=== PATIENT | male | born 1970 | race Caucasian/White ===

== ENCOUNTER 2018-11-25 05:04 | Observation (INO) | payer OTHER, SELFPAY ==
[2018-11-25] VITALS (21 sets, daily range): BP systolic 114–183; BP diastolic 73–136; PULSE 82–107; RESP 11–18; TEMP 36.1–36.7; O2SAT 93–100; BMI 38.7
--- NOTE | 2018-11-25 | DI.RAD.S_ITS ---
PROCEDURE: XR SHOULDER LT MIN 2V INDICATIONS: SHOULDER REDUCTION TECHNIQUE: 3 views of the shoulder were acquired. COMPARISON: [facility], CR, XR SHOULDER LT MIN 2V, 11/25/2018, 9:17. FINDINGS: 3 intraoperative fluoroscopic views of the left shoulder demonstrate reduction of the left glenohumeral joint. A reverse Hill-Sachs fracture is redemonstrated. IMPRESSION: 1. Intraoperative fluoroscopic views demonstrate reduction of the left glenohumeral joint. Dictated by: Colten Carrasquillo M.D. on 11/25/2018 at 13:36 Approved by: Colten Carrasquillo M.D. on 11/25/2018 at 13:38
--- NOTE | 2018-11-25 05:15 | DI.RAD.S_ITS ---
PROCEDURE: XR SHOULDER LT MIN 2V INDICATIONS: left shoulder pain, s/p seizure activity TECHNIQUE: 3 views of the shoulder were acquired. COMPARISON: None. FINDINGS: Bones: There is posterior dislocation of the left glenohumeral joint. There is an associated impaction fracture medially consistent with a reverse Hill-Sachs lesion. Visualized ribs appear intact. Soft tissues: No suspicious soft tissue calcifications. IMPRESSION: 1. Posterior dislocation of the left glenohumeral joint with an impacted reverse Hill-Sachs lesion. Dictated by: Colten Carrasquillo M.D. on 11/25/2018 at 7:32 Approved by: Colten Carrasquillo M.D. on 11/25/2018 at 7:34
[2018-11-25] MEDS: SODIUM CHLORIDE 0.9% 1,000 ML 1000 ML IV (05:27)
--- NOTE | 2018-11-25 05:32 | ED.SEIZURE ---
HPI - Seizure <Vanna Marques DO - Last Filed: 11/27/18 08:01> General Chief Complaint: Seizure Stated Complaint: seizure Time Seen by Provider: 11/25/18 05:14 Source: patient and EMS Mode of arrival: EMS Limitations: no limitations History of Present Illness HPI Narrative: This is a 48-year-old male comes to the emergency department with complaint of seizure-like activity. Patient was camping at [facility]. The patient's family witnessed patient's seizure-like activity, they did not witness the initial seizure and are unsure of the exact length. Patient was postictal for about 10 minutes and then appeared to return to baseline. Patient was normal per EMS transport. He had a normal glucose seen. He denies headache, did have a tongue laceration and had bleeding at the scene but had since stopped during transport. Patient denies any neck pain, no chest pain or shortness of breath. No nausea, no vomiting no other GI or urinary symptoms other than urinary incontinence. Patient denies any new weakness or numbness. He does have pain in his left shoulder and was reported to have been lying on his left side with his shoulder pulled behind him. He has pain with movement at the shoulder but denies any pain in his lower arm. No numbness or tingling. Patient states he has a history of seizure disorder, he has had 3 or 4 seizures throughout his life. He does take Lamictal daily and states he has missed several doses recently although he did take his dose on Monday as well as Monday, today being early in the morning on Monday. He denies any tobacco, alcohol or illicit. He does have sleep apnea. He also takes medication for cholesterol. And he has a history of bipolar. Patient denies any other new changes no changes to his medications. Related Data Previous Rx's Medication Instructions Recorded hydrocodone-acetaminophen 1 tab PO Q4HR PRN #40 tab 11/25/18 Allergies Allergy/AdvReac Type Severity Reaction Status Date / Time No Known Drug Allergies Allergy Verified 11/25/18 06:33 Review of Systems <Vanna Marques DO - Last Filed: 11/27/18 08:01> Review of Systems ROS Unobtainable: All systems reviewed & are unremarkable except as noted in HPI and below PFSH <Vanna Marques DO - Last Filed: 11/27/18 08:01> Medical History (Updated 11/25/18 @ 11:54 by Arelis Bonds DO) Dyslipidemia (Acute) Seizure disorder (Acute) Surgical History (Updated 11/25/18 @ 10:52 by Shawn Gómez MD) S/P ACL reconstruction (Acute) Social History (Updated 11/25/18 @ 05:35 by Vanna Marques DO) household members: family and children Smoking Status: Never smoker alcohol intake: never substance use type: does not use Social History (Updated 11/25/18 @ 05:35 by Vanna Marques DO) household members: family and children Smoking Status: Never smoker alcohol intake: never substance use type: does not use Exam <Vanna Marques DO - Last Filed: 11/27/18 08:01> Narrative Exam Narrative: GEN: well nourished, obese male, alert and oriented x 3, patient appears to be in mild distress. HEENT: Atraumatic, pupils are equal round reactive to light, extraocular movements are intact, nares are clear, TMs are clear with no fluid, there is no conjunctival pallor. Throat is clear without any exudates, erythema, tonsillar enlargement or uvular deviation, patient does have an abrasion on the left lateral side of the tongue, no active bleeding at this time. HEART: Regular rate and rhythm without murmur, clicks, rubs. Pulses are equal bilateral upper extremities. LUNGS:Lungs clear to auscultation, no wheezes, rales, crackles, chest moves symmetrically ABD:bowel sounds normal, soft, non-tender, no guarding, rebound, rigidity, no masses noted, no hepatosplenomegaly :No CVA tenderness, patient does have stain on pants consistent with urinary incontinence. BACK: No cervical, thoracic or lumbar vertebral point tenderness. Patient has normal range of motion. Patient's gait is not tested. Rectal exam is deferred. Muscle strength is 5/5 in lower extremities, sensation is intact in upper lower extremities with equal ammunition assembly ii laborer bilaterally. Patient is able to move his right and left lower arms without any issue. He has pain with AB duction flexion or extension of the right left shoulder. Patient has some mild tenderness over the right EC joint. Otherwise patient does not have any bony tenderness, no obvious ecchymosis or deformity. MSCL: Patient does not have any other bony tenderness other than described above, full range of motion of all other extremities NEURO:CN 2-12 intact, sensation normal SKIN; no rash, no ecchymosis, no petechiae. Initial Vital Signs Initial Vital Signs: Vital Signs Temperature 98.1 F 11/25/18 05:10 Pulse Rate 107 H 11/25/18 05:10 Respiratory Rate 18 11/25/18 05:10 Blood Pressure 151/93 H 11/25/18 05:10 Pulse Oximetry 99 11/25/18 05:10 <Arelis Bonds DO - Last Filed: 11/25/18 14:17> Initial Vital Signs Initial Vital Signs: Vital Signs Temperature 98.1 F 11/25/18 05:10 Pulse Rate 107 H 11/25/18 05:10 Respiratory Rate 18 11/25/18 05:10 Blood Pressure 151/93 H 11/25/18 05:10 Pulse Oximetry 99 11/25/18 05:10 <Arelis Bonds DO - Last Filed: 11/25/18 14:17> Orthopedic Joint Reduction Joint #1: Time Out Performed: Yes Side: left Joint Reduction Location: shoulder Analgesia: procedural sedation Shoulder Technique Used (if applicable): traction/counter-traction and external rotation Post-reduction neuro exam: intact Post-reduction vascular: intact Post Reduction X-Ray Obtained: Yes Post Reduction X-Ray Results: not reduced Splint Applied: Yes Patient Tolerated Procedure: Well Orthopedic Splinting/Casting Injury #1: Side: left Upper Extremity Injury Location: shoulder Upper Extremity Immobilizer: sling/shoulder immobilizer Post splinting neuro exam: intact Post splinting vascular exam: intact Procedural Sedation Patient Age: Patient is 5yrs or older Consent signed: Yes Time out performed: Yes Indication: fracture/dislocation reduction ASA Class: III Mallampati Airway Classification: Class II Preparation: satellite project site monitor applied, pulse oximeter, capnometry used, supplemental O2 applied and IV secured IV Etomidate dose (mg): 12 Intraservice time/total sedation time (min): 15 ED Sedation Level: Moderate (Concious) Complications: none Scores <Vanna Marques DO - Last Filed: 11/27/18 08:01> GCS [place] coma scale eye opening: Spontaneous [place] coma scale verbal response: Orientated [place] coma scale motor response: Obey commands [place] coma scale total score: 15 Course <Vanna Chaidez Shelli, DO - Last Filed: 11/27/18 08:01> Orders Ordered: Discontinued Medications Hydrocodone Bitart/Acetaminophen ([place] 5/325) 1 tab PO Q30MIN PRN PRN Reason: Mild or moderate pain Hydrocodone Bitart/Acetaminophen ([place] 5/325) 1 tab PO Q4HR PRN PRN Reason: Pain, Moderate (4-6) Diphtheria/Tetanus/Acell Pertussis (Adacel) 0.5 ml IM .ONCE ONE Stop: 11/25/18 05:41 Last Admin: 11/25/18 06:34 Dose: 0.5 ml Documented by: EDWARD Etomidate (Amidate) 12.2 mg 0.1 mg/kg (12.2 mg) IV NOW ONE Stop: 11/25/18 08:58 Last Admin: 11/25/18 09:10 Dose: 12.2 mg Documented by: DAIANA Fentanyl (Sublimaze) 50 mcg IV Q5MIN PRN PRN Reason: Pain, Moderate (4-6) Fentanyl (Sublimaze) 50 mcg IV Q5MIN PRN PRN Reason: Pain, Severe (7-10) Last Admin: 11/25/18 12:55 Dose: 50 mcg Documented by: TORI Hydromorphone HCl (Dilaudid) 0.5 mg IV NOW ONE Stop: 11/25/18 08:42 Last Admin: 11/25/18 08:46 Dose: 0.5 mg Documented by: DAIANA Hydromorphone HCl (Dilaudid) 0.5 mg IV Q2H PRN PRN Reason: Pain, Severe (7-10) Hydromorphone HCl (Dilaudid) 0.5 mg IV Q5MIN PRN PRN Reason: Pain, Moderate (4-6) Sodium Chloride (Normal Saline 0.9%) 1,000 mls @ 1,000 mls/hr IV BOLUS ONE Stop: 11/25/18 06:14 Last Infusion: 11/25/18 06:32 Dose: 0 mls/hr Documented by: Admin: 11/25/18 05:27 Dose: 1,000 mls/hr Documented by: EDWARD Cefazolin Sodium/Dextrose (Ancef) 2 gm in 100 mls @ 200 mls/hr IV NOW ONE Stop: 11/25/18 12:59 Lactated Ringer's (Lactated Ringers) 1,000 mls @ 42 mls/hr IV CONT KEMI Last Admin: 11/25/18 12:35 Dose: 42 mls/hr Documented by: TORI Meperidine HCl (Demerol) 25 mg IV Q5MIN PRN PRN Reason: Pain or shivering Morphine Sulfate (Morphine) 2 mg IV NOW ONE Stop: 11/25/18 06:52 Last Admin: 11/25/18 06:59 Dose: 2 mg Documented by: EDWARD Ondansetron HCl (Zofran) 4 mg IV NOW PRN PRN Reason: Nausea And Vomiting Oxycodone/Acetaminophen (Percocet 5/325) 1 tab PO Q30MIN PRN PRN Reason: Mild or moderate pain Vital Signs Vital signs: Vital Signs - 8 hr 11/25/18 07:04 11/25/18 08:50 11/25/18 09:00 Pulse Rate 84 86 86 Respiratory Rate 16 16 16 Blood Pressure [Right Arm] 183/136 H 135/78 136/92 H Pulse Oximetry 99 100 100 11/25/18 09:10 11/25/18 09:12 11/25/18 09:15 Pulse Rate 94 H 97 H 88 Respiratory Rate 18 18 18 Blood Pressure [Right Arm] 147/88 H 150/92 H 132/90 Pulse Oximetry 95 96 95 11/25/18 09:20 11/25/18 09:25 11/25/18 09:30 Pulse Rate 96 H 82 83 Respiratory Rate 18 16 16 Blood Pressure [Right Arm] 126/78 124/76 138/73 Pulse Oximetry 95 97 98 <Arelis Bonds, - Last Filed: 11/25/18 14:17> Orders Ordered: Discontinued Medications Hydrocodone Bitart/Acetaminophen ([place] 5/325) 1 tab PO Q30MIN PRN PRN Reason: Mild or moderate pain Hydrocodone Bitart/Acetaminophen ([place] 5/325) 1 tab PO Q4HR PRN PRN Reason: Pain, Moderate (4-6) Diphtheria/Tetanus/Acell Pertussis (Adacel) 0.5 ml IM .ONCE ONE Stop: 11/25/18 05:41 Last Admin: 11/25/18 06:34 Dose: 0.5 ml Documented by: EDWARD Etomidate (Amidate) 12.2 mg 0.1 mg/kg (12.2 mg) IV NOW ONE Stop: 11/25/18 08:58 Last Admin: 11/25/18 09:10 Dose: 12.2 mg Documented by: DAIANA Fentanyl (Sublimaze) 50 mcg IV Q5MIN PRN PRN Reason: Pain, Moderate (4-6) Fentanyl (Sublimaze) 50 mcg IV Q5MIN PRN PRN Reason: Pain, Severe (7-10) Last Admin: 11/25/18 12:55 Dose: 50 mcg Documented by: TORI Hydromorphone HCl (Dilaudid) 0.5 mg IV NOW ONE Stop: 11/25/18 08:42 Last Admin: 11/25/18 08:46 Dose: 0.5 mg Documented by: DAIANA Hydromorphone HCl (Dilaudid) 0.5 mg IV Q2H PRN PRN Reason: Pain, Severe (7-10) Hydromorphone HCl (Dilaudid) 0.5 mg IV Q5MIN PRN PRN Reason: Pain, Moderate (4-6) Sodium Chloride (Normal Saline 0.9%) 1,000 mls @ 1,000 mls/hr IV BOLUS ONE Stop: 11/25/18 06:14 Last Infusion: 11/25/18 06:32 Dose: 0 mls/hr Documented by: Admin: 11/25/18 05:27 Dose: 1,000 mls/hr Documented by: EDWARD Cefazolin Sodium/Dextrose (Ancef) 2 gm in 100 mls @ 200 mls/hr IV NOW ONE Stop: 11/25/18 12:59 Lactated Ringer's (Lactated Ringers) 1,000 mls @ 42 mls/hr IV CONT KEMI Last Admin: 11/25/18 12:35 Dose: 42 mls/hr Documented by: TORI Meperidine HCl (Demerol) 25 mg IV Q5MIN PRN PRN Reason: Pain or shivering Morphine Sulfate (Morphine) 2 mg IV NOW ONE Stop: 11/25/18 06:52 Last Admin: 11/25/18 06:59 Dose: 2 mg Documented by: EDWARD Ondansetron HCl (Zofran) 4 mg IV NOW PRN PRN Reason: Nausea And Vomiting Oxycodone/Acetaminophen (Percocet 5/325) 1 tab PO Q30MIN PRN PRN Reason: Mild or moderate pain Vital Signs Vital signs: Vital Signs - 8 hr 11/25/18 07:04 11/25/18 08:50 11/25/18 09:00 Pulse Rate 84 86 86 Respiratory Rate 16 16 16 Blood Pressure [Right Arm] 183/136 H 135/78 136/92 H Pulse Oximetry 99 100 100 11/25/18 09:10 11/25/18 09:12 11/25/18 09:15 Pulse Rate 94 H 97 H 88 Respiratory Rate 18 18 18 Blood Pressure [Right Arm] 147/88 H 150/92 H 132/90 Pulse Oximetry 95 96 95 11/25/18 09:20 11/25/18 09:25 11/25/18 09:30 Pulse Rate 96 H 82 83 Respiratory Rate 18 16 16 Blood Pressure [Right Arm] 126/78 124/76 138/73 Pulse Oximetry 95 97 98 MDM - Seizure <Vanna Marques, - Last Filed: 11/27/18 08:01> Lab Data Attestation: I reviewed the patient's lab results. Result diagrams: 11/25/18 05:20 11/25/18 05:20 Labs: Lab Results 11/25/18 11/25/18 11/25/18 Range/Units 05:20 05:20 09:44 WBC 9.1 (4.5-11.0) X10^3/uL RBC 5.05 (4.5-5.9) X10^6/uL Hgb 14.6 (13.5-17.5) g/dL Hct 41.5 (41-53) % MCV 82.2 (80-100) fL MCH 28.9 (26-34) PG MCHC 35.1 (30-36) % RDW 14.0 (11.6-14.8) % Plt Count 255 (150-400) X10^3/uL Neut % (Auto) 81.7 H (50-75) % Lymph % (Auto) 11.4 L (25-40) % [place] % (Auto) 4.8 (3-14) % Eos % (Auto) 1.1 L (2-4) % Baso % (Auto) 1.0 (0-2) % Neut # (Auto) 7500 H (0951-7619) /uL Lymph # (Auto) 1000 L (4659-7844) /uL [place] # (Auto) 400 (0-900) /uL Eos # (Auto) 100 (0-450) /uL Baso # (Auto) 100 (0-100) /uL Sodium 139 (137-145) mmol/L Potassium 4.6 (3.4-5.1) mmol/L Chloride 101 (98-107) mmol/L Carbon Dioxide 25 (22-32) mmol/L BUN 16 (9-20) mg/dL Creatinine 0.60 L (0.66-1.25) mg/dL Estimated GFR > 60.0 (>60) mL/min BUN/Creatinine Ratio 26.7 H (6-22) Glucose 132 H (70-100) mg/dL Calcium 9.5 (8.4-10.2) mg/dL Magnesium 2.1 (1.6-2.3) mg/dL Prolactin 16.7 (3.7-17.9) ng/mL Urine Color Yellow Urine Appearance Clear Urine pH 6.5 (4.5-8.0) Ur Specific [place] 1.015 (1.000-1.035) Urine Protein Negative (Negative) Urine Glucose (UA) Negative (Negative) g/dL Urine Ketones Negative (NEGATIVE) Urine Occult Blood Negative (Negative) Urine Nitrate Negative (Negative) Urine Bilirubin Negative (NEGATIVE) Urine Urobilinogen 0.2 (0.2) E.U./dL Ur Leukocyte Esterase Negative (NEGATIVE) Urine Opiates Screen (Negative) POC Urine Buprenorphine (Negative) U Morph 300 ng/mL cutoff (Negative) Ur Oxycodone Screen (Negative) Urine Methadone Screen (Negative) Ur Barbiturates Screen (Negative) U Tricyclic Antidepress (Negative) Ur Phencyclidine Scrn (Negative) Ur Amphetamines Screen (Negative) U Methamphetamines Scrn (Negative) Ur MDMA Scrn (Ecstasy) (Negative) U Benzodiazepines Scrn (Negative) Urine Cocaine Screen (Negative) U Marijuana (THC) Screen (Negative) Ethyl Alcohol < 10 ( - 10) mg/dL 11/25/18 Range/Units 09:44 WBC (4.5-11.0) X10^3/uL RBC (4.5-5.9) X10^6/uL Hgb (13.5-17.5) g/dL Hct (41-53) % MCV (80-100) fL MCH (26-34) PG MCHC (30-36) % RDW (11.6-14.8) % Plt Count (150-400) X10^3/uL Neut % (Auto) (50-75) % Lymph % (Auto) (25-40) % [place] % (Auto) (3-14) % Eos % (Auto) (2-4) % Baso % (Auto) (0-2) % Neut # (Auto) (9945-2190) /uL Lymph # (Auto) (3644-6746) /uL [place] # (Auto) (0-900) /uL Eos # (Auto) (0-450) /uL Baso # (Auto) (0-100) /uL Sodium (137-145) mmol/L Potassium (3.4-5.1) mmol/L Chloride (98-107) mmol/L Carbon Dioxide (22-32) mmol/L BUN (9-20) mg/dL Creatinine (0.66-1.25) mg/dL Estimated GFR (>60) mL/min BUN/Creatinine Ratio (6-22) Glucose (70-100) mg/dL Calcium (8.4-10.2) mg/dL Magnesium (1.6-2.3) mg/dL Prolactin (3.7-17.9) ng/mL Urine Color Urine Appearance Urine pH (4.5-8.0) Ur Specific [place] (1.000-1.035) Urine Protein (Negative) Urine Glucose (UA) (Negative) g/dL Urine Ketones (NEGATIVE) Urine Occult Blood (Negative) Urine Nitrate (Negative) Urine Bilirubin (NEGATIVE) Urine Urobilinogen (0.2) E.U./dL Ur Leukocyte Esterase (NEGATIVE) Urine Opiates Screen Negative (Negative) POC Urine Buprenorphine Negative (Negative) U Morph 300 ng/mL cutoff Positive H (Negative) Ur Oxycodone Screen Negative (Negative) Urine Methadone Screen Negative (Negative) Ur Barbiturates Screen Negative (Negative) U Tricyclic Antidepress Negative (Negative) Ur Phencyclidine Scrn Negative (Negative) Ur Amphetamines Screen Negative (Negative) U Methamphetamines Scrn Negative (Negative) Ur MDMA Scrn (Ecstasy) Negative (Negative) U Benzodiazepines Scrn Negative (Negative) Urine Cocaine Screen Negative (Negative) U Marijuana (THC) Screen Negative (Negative) Ethyl Alcohol ( - 10) mg/dL Point of Care Testing Glucose POC 131 Imaging Data shoulder xray: Radiologist's impression: mild collapse of medial humeral head, likely secondary to age-indeterminate impaction fracture of less likely prior avascular necrosis. No joint dislocation. Mild acrominal clavicular joint degenerative disease. Likely secondary to age indeterminate action fracture. Less likely prior vascular necrosis. Recommend comparison with prior imaging if no prior imaging available than left shoulder CT or MRI would best for further eval ECG Data Attestation: I personally reviewed and interpreted this ECG as follows: Prior ECG tracings: not available for review Interpretation: Sinus tachycardia rate of 107 P are 136 QRS of 104 and QTC of 391. Nonspecific change. No prior EKGs available MDM Narrative Medical decision making narrative: Patient comes with complaint of seizure-like activity, patient has missed several doses recently. He states he does not consistently misses Lamictal. This could potentially be contributing factor to what is described as seizure-like activity. Patient's labs show increased neutrophil count but no other changes. BMP shows a glucose of 132 prolactin is normal. Patient's toxicology Lamictal level is a send out. Patient's shoulder x-ray shows possible age intermittent impaction fracture. Patient does have some point tenderness over the shoulder but does not recall any significant past injuries. He does work as a apprentice machinist outside and has quite a bit of repetition in his shoulder with usage. Discussed findings with patient, awaiting ortho recommendations. Patient signed out to Dr. Bonds while awaiting these, patient aware of possible need for reduction of dislocation. <Arelis Bonds, DO - Last Filed: 11/25/18 14:17> Lab Data Attestation: I reviewed the patient's lab results. Labs: Lab Results 11/25/18 11/25/18 11/25/18 Range/Units 05:20 05:20 09:44 WBC 9.1 (4.5-11.0) X10^3/uL RBC 5.05 (4.5-5.9) X10^6/uL Hgb 14.6 (13.5-17.5) g/dL Hct 41.5 (41-53) % MCV 82.2 (80-100) fL MCH 28.9 (26-34) PG MCHC 35.1 (30-36) % RDW 14.0 (11.6-14.8) % Plt Count 255 (150-400) X10^3/uL Neut % (Auto) 81.7 H (50-75) % Lymph % (Auto) 11.4 L (25-40) % [place] % (Auto) 4.8 (3-14) % Eos % (Auto) 1.1 L (2-4) % Baso % (Auto) 1.0 (0-2) % Neut # (Auto) 7500 H (0214-2846) /uL Lymph # (Auto) 1000 L (0508-1424) /uL [place] # (Auto) 400 (0-900) /uL Eos # (Auto) 100 (0-450) /uL Baso # (Auto) 100 (0-100) /uL Sodium 139 (137-145) mmol/L Potassium 4.6 (3.4-5.1) mmol/L Chloride 101 (98-107) mmol/L Carbon Dioxide 25 (22-32) mmol/L BUN 16 (9-20) mg/dL Creatinine 0.60 L (0.66-1.25) mg/dL Estimated GFR > 60.0 (>60) mL/min BUN/Creatinine Ratio 26.7 H (6-22) Glucose 132 H (70-100) mg/dL Calcium 9.5 (8.4-10.2) mg/dL Magnesium 2.1 (1.6-2.3) mg/dL Prolactin 16.7 (3.7-17.9) ng/mL Urine Color Yellow Urine Appearance Clear Urine pH 6.5 (4.5-8.0) Ur Specific [place] 1.015 (1.000-1.035) Urine Protein Negative (Negative) Urine Glucose (UA) Negative (Negative) g/dL Urine Ketones Negative (NEGATIVE) Urine Occult Blood Negative (Negative) Urine Nitrate Negative (Negative) Urine Bilirubin Negative (NEGATIVE) Urine Urobilinogen 0.2 (0.2) E.U./dL Ur Leukocyte Esterase Negative (NEGATIVE) Urine Opiates Screen (Negative) POC Urine Buprenorphine (Negative) U Morph 300 ng/mL cutoff (Negative) Ur Oxycodone Screen (Negative) Urine Methadone Screen (Negative) Ur Barbiturates Screen (Negative) U Tricyclic Antidepress (Negative) Ur Phencyclidine Scrn (Negative) Ur Amphetamines Screen (Negative) U Methamphetamines Scrn (Negative) Ur MDMA Scrn (Ecstasy) (Negative) U Benzodiazepines Scrn (Negative) Urine Cocaine Screen (Negative) U Marijuana (THC) Screen (Negative) Ethyl Alcohol < 10 ( - 10) mg/dL 11/25/18 Range/Units 09:44 WBC (4.5-11.0) X10^3/uL RBC (4.5-5.9) X10^6/uL Hgb (13.5-17.5) g/dL Hct (41-53) % MCV (80-100) fL MCH (26-34) PG MCHC (30-36) % RDW (11.6-14.8) % Plt Count (150-400) X10^3/uL Neut % (Auto) (50-75) % Lymph % (Auto) (25-40) % [place] % (Auto) (3-14) % Eos % (Auto) (2-4) % Baso % (Auto) (0-2) % Neut # (Auto) (2197-7328) /uL Lymph # (Auto) (5347-6211) /uL [place] # (Auto) (0-900) /uL Eos # (Auto) (0-450) /uL Baso # (Auto) (0-100) /uL Sodium (137-145) mmol/L Potassium (3.4-5.1) mmol/L Chloride (98-107) mmol/L Carbon Dioxide (22-32) mmol/L BUN (9-20) mg/dL Creatinine (0.66-1.25) mg/dL Estimated GFR (>60) mL/min BUN/Creatinine Ratio (6-22) Glucose (70-100) mg/dL Calcium (8.4-10.2) mg/dL Magnesium (1.6-2.3) mg/dL Prolactin (3.7-17.9) ng/mL Urine Color Urine Appearance Urine pH (4.5-8.0) Ur Specific [place] (1.000-1.035) Urine Protein (Negative) Urine Glucose (UA) (Negative) g/dL Urine Ketones (NEGATIVE) Urine Occult Blood (Negative) Urine Nitrate (Negative) Urine Bilirubin (NEGATIVE) Urine Urobilinogen (0.2) E.U./dL Ur Leukocyte Esterase (NEGATIVE) Urine Opiates Screen Negative (Negative) POC Urine Buprenorphine Negative (Negative) U Morph 300 ng/mL cutoff Positive H (Negative) Ur Oxycodone Screen Negative (Negative) Urine Methadone Screen Negative (Negative) Ur Barbiturates Screen Negative (Negative) U Tricyclic Antidepress Negative (Negative) Ur Phencyclidine Scrn Negative (Negative) Ur Amphetamines Screen Negative (Negative) U Methamphetamines Scrn Negative (Negative) Ur MDMA Scrn (Ecstasy) Negative (Negative) U Benzodiazepines Scrn Negative (Negative) Urine Cocaine Screen Negative (Negative) U Marijuana (THC) Screen Negative (Negative) Ethyl Alcohol ( - 10) mg/dL Point of Care Testing Glucose POC 131 Imaging Data left shoulder ct: Radiologist's impression: PROCEDURE: CT UE LT WO CON INDICATIONS: dislocation vs fracture, seizure now shoulder pain TECHNIQUE: Noncontrast 1-1.5 mm thick sections acquired from the acromioclavicular joint to the inferior scapula, with coronal and sagittal reformatting. COMPARISON: None. FINDINGS: Image quality: Excellent. Bones: There is posterior dislocation of the left glenohumeral joint. There is an associated mildly comminuted impaction fracture of the anteromedial humeral head consistent with a reverse Hill-Sachs lesion including involvement of the greater and lesser tuberosities. The fracture fragments are displaced by less than 1 cm. However, there is impaction of approximately 0.9 cm. The left humerus demonstrates internal rotation. There is a small chip fracture of the posterior aspect of the glenoid consistent with a reverse [place] lesion. 2 small associated fragments are demonstrated posterior to the glenoid. Soft tissues: No soft tissue fluid collections. There is mild periarticular edema around the left glenohumeral joint. No definite joint effusion. IMPRESSION: 1. Posterior dislocation of the left glenohumeral joint with a comminuted impacted fracture of the humeral head consistent with a reverse Hill-Sachs lesion. A small chip fracture of the posterior glenoid is also demonstrated consistent with a reverse [place] lesion. Dictated by: Colten Carrasquillo M.D. on 11/25/2018 at 7:35 left shoulder xr #1: Radiologist's impression: PROCEDURE: XR SHOULDER LT MIN 2V INDICATIONS: left shoulder pain, s/p seizure activity TECHNIQUE: 3 views of the shoulder were acquired. COMPARISON: None. FINDINGS: Bones: There is posterior dislocation of the left glenohumeral joint. There is an associated impaction fracture medially consistent with a reverse Hill-Sachs lesion. Visualized ribs appear intact. Soft tissues: No suspicious soft tissue calcifications. IMPRESSION: 1. Posterior dislocation of the left glenohumeral joint with an impacted reverse Hill-Sachs lesion. Dictated by: Colten Carrasquillo M.D. on 11/25/2018 at 7:32 Approved by: Colten Carrasquillo M.D. on 11/25/2018 at 7:34 left shoulder #2: Radiologist's impression: PROCEDURE: XR SHOULDER LT MIN 2V INDICATIONS: reduction TECHNIQUE: 2 views of the shoulder were acquired. COMPARISON: [facility], CT, CT UE LT WO CON, 11/25/2018, 8:10. [facility], CR, XR SHOULDER LT MIN 2V, 11/25/2018, 6:00. FINDINGS: Bones: There is interval slightly improved alignment of the glenohumeral joint although the humeral head appears posteriorly positioned. Impacted fracture of the humeral head consistent with a reverse Hill-Sachs lesion is again noted. Visualized ribs appear intact. Soft tissues: No suspicious soft tissue calcifications. IMPRESSION: 1. Probable reduction of the glenohumeral joint although there is slight posterior alignment of the humeral head. Recommend correlation with clinical exam and consider an axillary view if clinically feasible. Findings discussed with Dr. Bonds on 11/25/18 at 9:50 AM [place] time. Dictated by: Colten Carrasquillo M.D. on 11/25/2018 at 8:47 MDM Narrative Medical decision making narrative: Patient signed out to me by Dr. Marques I have seen evaluated patient myself. He does have a deformity in that left shoulder. CT confirms dislocation. Procedures sedation and attempt at reduction. Patient overall feels better he is able to move his shoulder but he is not able to exteriorly rotate. Repeat x-ray does still show dislocation. I have called and spoken with orthopedics Dr. Gómez. He is in the ED to see and evaluate patient, the patient will be going to OR. Discharge Plan Departure Patient Disposition: Admitted as Observation Clinical Impression: Seizure Closed dislocation of left shoulder Qualifiers: Encounter type: initial encounter Qualified Code(s): S43.005A - Unspecified dislocation of left shoulder joint, initial encounter Discharge Date/Time: 11/25/18 12:19 Instructions: DI for Seizure Disorder -- Adult Additional Instructions: Follow up with your primary care physician in the next 24-48 hours for recheck. Continue home medications as prescribed. Continue to take your lamictal daily. Return to the emergency department for new or worsening symptoms, severe headaches, vision changes, persistent nausea or vomiting, new weakness, numbness, loss of sensation, passing 0 home a recurrent or frequent seizures especially if you do not return to baseline or other new or concerning symptoms. Referrals: Shawn Gómez MD [Physician] - 1 Week Admit Date/Time: 11/25/18 10:31 Admit Provider: Shawn Gómez
[2018-11-25 05:34] LABS: Add Manual Diff / Slide Review NO; Basophils Absolute Auto 100 /uL (0-100); Eosinophils Absolute Auto 100 /uL (0-450); Eosinophils Percent Auto 1.1 % (2-4); Hematocrit 41.5 % (41-53); Hemoglobin 14.6 g/dL (13.5-17.5); Lymphocytes Absolute Auto 1000 /uL (1100-4500); Lymphocytes Percent Auto 11.4 % (25-40); Mean Corpuscular HGB Conc 35.1 % (30-36); Mean Corpuscular Hemoglobin 28.9 PG (26-34); Mean Corpuscular Volume 82.2 fL (80-100); Monocytes Absolute Auto 400 /uL (0-900); Monocytes Percent Auto 4.8 % (3-14); Neutrophils Absolute Auto 7500 /uL (1500-7000); Neutrophils Percent Auto 81.7 % (50-75); Platelet Count 255 X10^3/uL (150-400); Red Blood Cell Count 5.05 X10^6/uL (4.5-5.9); White Blood Cell Count 9.1 X10^3/uL (4.5-11.0)
[2018-11-25 05:42] LABS: BUN Creatinine Ratio 26.7 (6-22); Blood Urea Nitrogen 16 mg/dL (9-20); Calcium 9.5 mg/dL (8.4-10.2); Carbon Dioxide 25 mmol/L (22-32); Chloride 101 mmol/L (98-107); Estimated Glomerular Filt Rate > 60.0 mL/min (>60); Ethanol (ETOH) < 10 mg/dL; Glucose 132 mg/dL (70-100); Magnesium 2.1 mg/dL (1.6-2.3); Sodium 139 mmol/L (137-145)
[2018-11-25 05:44] LABS: HEMOLYSIS 66 (0-50)
--- NOTE | 2018-11-25 05:44 | PC.NURSE ---
Patient with severe left shoulder pain s/p seizure. + deformity to left shoulder area. Ice applied, Xrays ordered.
[2018-11-25 05:46] LABS: Potassium 4.6 mmol/L (3.4-5.1)
[2018-11-25 05:59] LABS: Prolactin 16.7 ng/mL (3.7-17.9)
[2018-11-25] MEDS: TET,DIPH,PERTUSS(ACELL),VAC/PF 0.5 ML SYRINGE IM (06:34)
[2018-11-25] MEDS: MORPHINE 2 MG/ML INJ IV (06:59)
--- NOTE | 2018-11-25 07:57 | DI.CT.S_ITS ---
PROCEDURE: CT UE LT WO CON INDICATIONS: dislocation vs fracture, seizure now shoulder pain TECHNIQUE: Noncontrast 1-1.5 mm thick sections acquired from the acromioclavicular joint to the inferior scapula, with coronal and sagittal reformatting. COMPARISON: None. FINDINGS: Image quality: Excellent. Bones: There is posterior dislocation of the left glenohumeral joint. There is an associated mildly comminuted impaction fracture of the anteromedial humeral head consistent with a reverse Hill-Sachs lesion including involvement of the greater and lesser tuberosities. The fracture fragments are displaced by less than 1 cm. However, there is impaction of approximately 0.9 cm. The left humerus demonstrates internal rotation. There is a small chip fracture of the posterior aspect of the glenoid consistent with a reverse Bankart lesion. 2 small associated fragments are demonstrated posterior to the glenoid. Soft tissues: No soft tissue fluid collections. There is mild periarticular edema around the left glenohumeral joint. No definite joint effusion. IMPRESSION: 1. Posterior dislocation of the left glenohumeral joint with a comminuted impacted fracture of the humeral head consistent with a reverse Hill-Sachs lesion. A small chip fracture of the posterior glenoid is also demonstrated consistent with a reverse Bankart lesion. Dictated by: Colten Carrasquillo M.D. on 11/25/2018 at 7:35 Approved by: Colten Carrasquillo M.D. on 11/25/2018 at 7:42
[2018-11-25] MEDS: HYDROMORPHONE 0.5 MG INJ IV (08:46)
[2018-11-25] MEDS: ETOMIDATE 2 MG/ML 10 ML VIAL 12.2 MG IV (09:10)
--- NOTE | 2018-11-25 09:13 | DI.RAD.S_ITS ---
PROCEDURE: XR SHOULDER LT MIN 2V INDICATIONS: reduction TECHNIQUE: 2 views of the shoulder were acquired. COMPARISON: [facility], CT, CT UE LT WO CON, 11/25/2018, 8:10. [facility], CR, XR SHOULDER LT MIN 2V, 11/25/2018, 6:00. FINDINGS: Bones: There is interval slightly improved alignment of the glenohumeral joint although the humeral head appears posteriorly positioned. Impacted fracture of the humeral head consistent with a reverse Hill-Sachs lesion is again noted. Visualized ribs appear intact. Soft tissues: No suspicious soft tissue calcifications. IMPRESSION: 1. Probable reduction of the glenohumeral joint although there is slight posterior alignment of the humeral head. Recommend correlation with clinical exam and consider an axillary view if clinically feasible. Findings discussed with Dr. Bonds on 11/25/18 at 9:50 AM [place] time. Dictated by: Colten Carrasquillo M.D. on 11/25/2018 at 8:47 Approved by: Colten Carrasquillo M.D. on 11/25/2018 at 8:53
[2018-11-25 09:50] LABS: Appearance Urine UA CLEAR; Bilirubin Urine UA NEGATIVE (NEGATIVE); Color Urine UA YELLOW; Glucose Urine UA NEGATIVE (Negative); Ketones Urine UA NEGATIVE (NEGATIVE); Leukocyte Esterase Urine UA NEGATIVE (NEGATIVE); Nitrite Urine UA NEGATIVE (Negative); Occult Blood Urine UA NEGATIVE (Negative); Protein Urine UA NEGATIVE (Negative); Specific Gravity Urine UA 1.015 (1.000-1.035); Urobilinogen Urine UA 0.2 E.U./dL (0.2); pH Urine UA 6.5 (4.5-8.0)
[2018-11-25 09:57] LABS: Ur Creatinine Normal (Normal); Ur Specific Gravity Normal (Normal); Urine pH Normal (Normal)
[2018-11-25 09:58] LABS: Burprenorphine Negative (Negative); UR Morphine/Opiate cutoff 300 Positive (Negative); Urine Amphetamines Negative (Negative); Urine Barbiturates Negative (Negative); Urine Benzodiazepines Negative (Negative); Urine Cocaine Negative (Negative); Urine MDMA Negative (Negative); Urine Methadone Negative (Negative); Urine Methamphetamines Negative (Negative); Urine Morphine/Opi cutoff 2000 Negative (Negative); Urine Oxycodone Negative (Negative); Urine Phencyclidine Negative (Negative); Urine Tetrahydrocannabinol Negative (Negative); Urine Tricyclic Antidepressant Negative (Negative)
--- NOTE | 2018-11-25 10:47 | PM.HP.1 ---
History of Present Illness History of Present Illness Date Patient Seen: 11/25/18 Time Patient Seen: 10:10 Chief complaint: seizure Narrative: The patient is a 48-year-old [id number] gentleman who has a fairly well-controlled seizure disorder. He reports about 3 seizures over number of years. He is from [place], and was camping here in [place] when he suffered a significant seizure. He was taken to the [facility] Emergency room for treatment of this and was noted to have pain and lack of mobility of the left shoulder. Radiographs appeared to reveal a posterior dislocation of the left shoulder. This was confirmed on CT scan and a closed reduction performed in the emergency room without success. Formal orthopedic consultation has been obtained to manage this. Patient History Medical History (Updated 11/25/18 @ 10:51 by Shawn Gómez MD) Dyslipidemia (Acute) Seizure disorder (Acute) Surgical History (Updated 11/25/18 @ 10:52 by Shawn Gómez MD) S/P ACL reconstruction (Acute) Social History (Updated 11/25/18 @ 05:35 by Vanna Marques DO) Smoking Status: Never smoker alcohol intake: never substance use type: does not use Family & Social History Safety & Behavioral: Feels Safe in Current Yes Environment Been Physically Hurt or No Threatened By a Person Tobacco & Substance use: Smoking Status Never smoker alcohol intake never Substance Use Type does not use Meds Home Medications and Allergies Allergies Allergy/AdvReac Type Severity Reaction Status Date / Time No Known Drug Allergies Allergy Verified 11/25/18 06:33 Review of Systems Review of Systems ROS Unobtainable: All systems reviewed & are unremarkable except as noted in HPI and below Exam Vital Signs (past 8 hours): - 11/25/18 05:10 11/25/18 05:45 11/25/18 07:04 Temperature 98.1 F Pulse Rate 107 H 102 H 84 Respiratory Rate 18 18 16 Blood Pressure 151/93 H Blood Pressure [Right Arm] 142/81 H 183/136 H Pulse Oximetry 99 99 99 11/25/18 08:50 11/25/18 09:00 11/25/18 09:10 Temperature Pulse Rate 86 86 94 H Respiratory Rate 16 16 18 Blood Pressure Blood Pressure [Right Arm] 135/78 136/92 H 147/88 H Pulse Oximetry 100 100 95 11/25/18 09:12 11/25/18 09:15 11/25/18 09:20 Temperature Pulse Rate 97 H 88 96 H Respiratory Rate 18 18 18 Blood Pressure Blood Pressure [Right Arm] 150/92 H 132/90 126/78 Pulse Oximetry 96 95 95 11/25/18 09:25 11/25/18 09:30 Temperature Pulse Rate 82 83 Respiratory Rate 16 16 Blood Pressure Blood Pressure [Right Arm] 124/76 138/73 Pulse Oximetry 97 98 Oxygen Delivery Method Room Air Narrative Exam Narrative: The patient is a well-developed well-nourished middle-aged man lying in the emergency room [facility] wearing a left shoulder sling. Chest is clear to auscultation. Cardiac exam is regular rate and rhythm S1-S2 are normal. Abdomen is obese soft nontender with normal abdominal bowel sounds. Left upper extremity examination is notable for intact light touch in the radial, ulnar, median, muscular cutaneous and axillary nerve distributions. He can extend his thumb, abduct his thumb, abduct his fingers and can fire his biceps and deltoid. He is comfortable with his arm held in internal rotation and his hand on his abdomen, but any attempt externally rotate the shoulder causes significant discomfort. Objective Labs Result Diagrams: 11/25/18 05:20 11/25/18 05:20 Labs: Laboratory Results - last 24 hr 11/25/18 11/25/18 11/25/18 05:20 05:20 09:44 WBC 9.1 RBC 5.05 Hgb 14.6 Hct 41.5 MCV 82.2 MCH 28.9 MCHC 35.1 RDW 14.0 Plt Count 255 Neut % (Auto) 81.7 H Lymph % (Auto) 11.4 L [place] % (Auto) 4.8 Eos % (Auto) 1.1 L Baso % (Auto) 1.0 Neut # (Auto) 7500 H Lymph # (Auto) 1000 L [place] # (Auto) 400 Eos # (Auto) 100 Baso # (Auto) 100 Sodium 139 Potassium 4.6 Chloride 101 Carbon Dioxide 25 BUN 16 Creatinine 0.60 L Estimated GFR > 60.0 BUN/Creatinine Ratio 26.7 H Glucose 132 H Calcium 9.5 Magnesium 2.1 Prolactin 16.7 Urine Color Yellow Urine Appearance Clear Urine pH 6.5 Ur Specific [place] 1.015 Urine Protein Negative Urine Glucose (UA) Negative Urine Ketones Negative Urine Occult Blood Negative Urine Nitrate Negative Urine Bilirubin Negative Urine Urobilinogen 0.2 Ur Leukocyte Esterase Negative Urine Opiates Screen POC Urine Buprenorphine U Morph 300 ng/mL cutoff Ur Oxycodone Screen Urine Methadone Screen Ur Barbiturates Screen U Tricyclic Antidepress Ur Phencyclidine Scrn Ur Amphetamines Screen U Methamphetamines Scrn Ur MDMA Scrn (Ecstasy) U Benzodiazepines Scrn Urine Cocaine Screen U Marijuana (THC) Screen Ethyl Alcohol < 10 11/25/18 09:44 WBC RBC Hgb Hct MCV MCH MCHC RDW Plt Count Neut % (Auto) Lymph % (Auto) [place] % (Auto) Eos % (Auto) Baso % (Auto) Neut # (Auto) Lymph # (Auto) [place] # (Auto) Eos # (Auto) Baso # (Auto) Sodium Potassium Chloride Carbon Dioxide BUN Creatinine Estimated GFR BUN/Creatinine Ratio Glucose Calcium Magnesium Prolactin Urine Color Urine Appearance Urine pH Ur Specific [place] Urine Protein Urine Glucose (UA) Urine Ketones Urine Occult Blood Urine Nitrate Urine Bilirubin Urine Urobilinogen Ur Leukocyte Esterase Urine Opiates Screen Negative POC Urine Buprenorphine Negative U Morph 300 ng/mL cutoff Positive H Ur Oxycodone Screen Negative Urine Methadone Screen Negative Ur Barbiturates Screen Negative U Tricyclic Antidepress Negative Ur Phencyclidine Scrn Negative Ur Amphetamines Screen Negative U Methamphetamines Scrn Negative Ur MDMA Scrn (Ecstasy) Negative U Benzodiazepines Scrn Negative Urine Cocaine Screen Negative U Marijuana (THC) Screen Negative Ethyl Alcohol Radiographic and CT results are reviewed. These show a locked posterior dislocation. Further the CT scan shows that there is a nondisplaced fracture along the greater tuberosity in addition to a fracture along the lesser tuberosity. Postreduction films show no change in the position of the humerus from the pre reduction films. Assessment & Plan Assessment and plan (1) Sleep apnea: Current visit: Yes Status: Acute (2) Bipolar 1 disorder: Current visit: Yes Status: Acute Assessment & Plan narrative: The patient has a locked posterior dislocation. There is also fracturing of the tuberosities. There is a significant reverse Hill-Sachs lesion. Urgently his shoulder should be reduced. If this can be accomplished closed then he will be discharged today with follow-up with an orthopedist closer to home who eventually may need to perform a stabilization procedure if recurrent instability occurs. If closed reduction is not possible he will undergo open reduction and transfer of the lesser tuberosity into the reverse Hill-Sachs lesion. He is given his signed informed consent after discussion of the risks benefits and alternatives. Risks discussed included but were not limited to: Persistent instability, infection, nerve damage, deep venous thrombosis, pulmonary embolism, stroke, myocardial infarction, permanent paralysis, and the potential need for additional surgery in the future regardless of the procedure performed today. Time Spent With Patient Time with patient: 25 - 35 minutes
[2018-11-25] MEDS: LACTATED RINGERS 1,000 ML 42 ML IV (12:35)
[2018-11-25] MEDS: fentaNYL 100 MCG/2 ML INJ 50 MCG IV (12:55)
--- NOTE | 2018-11-25 12:59 | SUR.HOLD ---
1255 In OPD, continuous VS monitor on in prep for medication for pain. 1306Pain down to 3-4/10 after Rx. Daughter and ANTHONY at bedside. SCD's on.
--- NOTE | 2018-11-25 14:02 | SUR.OPER ---
Supine on padded OR bed, head on pillow, arms secured on padded arm boards at <90 degrees abduction, legs uncrossed, safety belt at thigh, tape over blanket over lower legs.
--- NOTE | 2018-11-25 14:15 | SUR.HOLD ---
1245 late entry: L arm in a sling from the ED, fingers warm, + motion and sensation, refill <2 seconds.
--- NOTE | 2018-11-25 14:34 | PM.OP.1 ---
Operative Date/Time/Diagnoses Date of procedure: 11/25/18 Time of procedure: 14:20 Pre-op diagnosis: Locked posterior dislocation of left glenohumeral joint Post-op diagnosis: same Procedure & Clinicians Procedure: Closed reduction under general anesthetic with fluoroscopy of left glenohumeral joint posterior locked dislocation Same procedure as scheduled: Yes Indications: The patient is a 48-year-old gentleman with a seizure disorder who suffered a seizure last night and had a left shoulder dislocation posteriorly. This was his 1st dislocation. An attempted reduction was performed in the emergency room without success. Orthopedic consultation was obtained. He has agreed to closed versus open reduction under general anesthetic in the operating room after discussion the risks benefits and alternatives as documented in my history and physical. Surgeon: Shawn Gómez Click Yes if Unassisted: Yes Anesthesia Type: General Operative Notes Closure Type: not applicable Specimen(s): none sent Prosthetic devices, grafts, tissues, transplants, or devices: None Estimated Blood Loss (mL): 0 Blood products transfused: none Procedure in detail: The patient was seen in the preoperative area where he confirmed the left shoulder was the injured site and this was marked with my initials. He was taken to the operating room and placed on the operating room table in the supine position where he underwent the induction of a general anesthetic. Following the onset of satisfactory anesthesia his sling was removed. A reduction maneuver was performed consisting of distal traction combined with maximal internal rotation to unlock the humeral head from the glenoid and then gentle lateral traction and external rotation to reduce the glenohumeral joint. Successful reduction and lack of iatrogenic fracture was confirmed on the AP and axillary views with fluoroscopy. In addition the patient had previously been unable to externally rotate his shoulder to neutral but could now easily externally rotate to 45? with the arm at the side and 80? with the arm in abduction. The arm was then replaced in the sling. He was allowed to awaken from anesthesia and taken to the recovery room in good condition having tolerated the procedure well. Complications: none Post-operative Condition: stable Disposition: PACU Plan for aftercare: The patient will be monitored with radiographs in follow-up to make sure that his reduction is stable. He is aware that he may require additional stabilization procedures if he continues to have symptoms of instability. I have also recommended that he seek neurologic followup to have his seizure disorder re-evaluated to try to prevent future seizures. The patient has stated he will likely try to get his orthopedic follow up in [place], which is closer to his home. We will print our documentation today so that he can take it with him.
--- NOTE | 2018-11-25 14:42 | SUR.PHASEI ---
talking intermittently, ice chips given, declined fluids
--- NOTE | 2018-11-25 15:00 | SUR.PHASEI ---
HOB elevated, fluids given, glasses returned to patient; VSS. no nausea, states pain is 1-2/10 and that it feels better than it did prior to the OR; declines need of pain med.
--- NOTE | 2018-11-25 15:13 | SUR.PHASEI ---
1510 To OPD, tends to desat when dozing, rebounds quickly to upper 90s when reminded to deep breathe; so he was put on o2 at 2Lnp and continuous pulse ox; HR 85, sat 98%.
--- NOTE | 2018-11-25 15:25 | SUR.PHASEII ---
Pt instructed to use CPAP at home, assures me that he always does.
--- NOTE | 2018-11-25 15:49 | SUR.PHASEII ---
1345 daughter about 15 minutes away, O2 dc'd
--- NOTE | 2018-11-25 16:26 | SUR.PHASEII ---
1620 to home with daughter, CMS unchanged, Stable, ambulated to bathroom w/RN standby; voided w/o difficulty. Fresh ice pack given for ride home. To car in a wheelchair.
[2018-11-29 09:13] LABS: Lamotrigine Lamictal 2.3 mcg/mL (4.0-18.0)
--- NOTE | 2018-12-24 09:47 | PC.NURSE ---
late entry: Lactated ringers started at 1235 stopped at 1610
== END 2018-11-25 16:20 | disposition home or self-care (01) ==
LOC: ED 08:02 → AC 10:32
PROVIDERS: Emergency Medicine; Admitting Provider Orthopaedic Surgery; Emergency Provider Emergency Medicine; Visit Provider Orthopaedic Surgery
PROC: (CPT 23655; principal; 2018-11-25 11:35)
DX: S43.085A Other dislocation of left shoulder joint, initial encounter (principal); R56.9 Unspecified convulsions; F31.9 Bipolar disorder, unspecified; G47.30 Sleep apnea, unspecified; Z23 Encounter for immunization
CPT/HCPCS: 23655; 23605; 36415; 73030; 73200; 76000; 80048; 80175; 80305; 80320; 81003; 83735; 84146; 85025; 90471; 93005; 94770; 96361; 96374; 96375; 99152; 99285; G0378; 90715; J0330; J1100; J1170; J2270; J2405; J2704; J3010